=== PATIENT | male | born 1990 | race Caucasian/White ===

== ENCOUNTER 2017-05-26 23:52 | Observation (INO) | payer SELFPAY ==
[~2017-05-26] VITALS: Ht 177.8 cm; Wt 84.0 kg
[2017-05-27] VITALS (8 sets, daily range): BP systolic 124–135; BP diastolic 67–85; PULSE 60–66; RESP 18–22; TEMP 97.9–98.2; O2SAT 96–99
[2017-05-27] MEDS ORDERED: SODIUM CHLORIDE 0.9% FLUSH 10 ML FLUSH IVF PRN (00:15)
[2017-05-27] MEDS ORDERED: SODIUM CHLORID 0.9% 500 ML INJ 500 ML IV ONE (00:15)
[2017-05-27 00:59] LABS: AUTOMATED NEUTROPHIL # 6.8 TH/MM3 (1.8-7.7); BASOPHIL % 0.4 % (0.0-2.0); EOSINOPHIL # 0.2 TH/MM3 (0-0.4); EOSINOPHIL % 1.7 % (0.0-4.0); HEMATOCRIT 42.8 % (39.0-51.0); HEMO FLAGS DIFF FINAL; LYMPH % 26.8 % (9.0-44.0); LYMPHOCYTE # 2.9 TH/MM3 (1.0-4.8); MEAN CELL VOLUME 94.4 FL (80.0-100.0); MEAN CORPUSCULAR HEMOGLOBIN 31.7 PG (27.0-34.0); MEAN CORPUSCULAR HGB CONC 33.6 % (32.0-36.0); MONO % 8.3 % (0.0-8.0); NEUT % 62.8 % (16.0-70.0); PLATELET COUNT 268 TH/MM3 (150-450); RED BLOOD COUNT 4.54 MIL/MM3 (4.50-5.90); RED CELL DISTRIBUTION WIDTH 14.6 % (11.6-17.2); WHITE BLOOD COUNT 10.8 TH/MM3 (4.0-11.0)
--- NOTE | 2017-05-27 01:02 | PD ---
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 It is worse with a deep breath. It is present in the left side of his chest. He occasionally has SOB with it. The CP has been coming and going for a couple of years. He denies ever having stress testing in the past. He has a h/o of hypertension dx 4 years ago. He denies taking medication for it. He denies history of DM, hyperlipidemia. He smoke 1 ppd. On review of systems, he denies having any recent fevers, neck pain, abdominal pain, vomiting , urinary symptoms, or neurologic symptoms. He has diarrhea for the last week approximately 5 x per day. He has also had cough, congestion, and rhinorrhea. His cough is productive of clear sputum PFSH Past Medical History Narrative Medical The patient's past medical history is significant for hypertension, tobacco use Chest Pain: Yes Hypertension: Yes Past Surgical History Surgical History: No Previous Surgery Social History Alcohol Use: Yes (occasionally) Tobacco Use: Yes (1 PPD) Substance Use: Yes (thc) Allergies-Medications (Allergen,Severity, Reaction): Coded Allergies: nabumetone (Unverified Allergy, Severe, 05/27/17) PT STATES HIS FACE REDDENS AND SWELLS UP Reported Meds & Prescriptions Reported Meds & Active Scripts Active No Active Prescriptions or Reported Medications Review of Systems Except as stated in HPI: all other systems reviewed are Neg General / Constitutional: No: Fever Eyes: No: Visual changes HENT: Positive: Rhinorrhea, Congestion, No: Headaches Cardiovascular: Positive: Chest Pain or Discomfort Respiratory: Positive: Cough, Shortness of Breath Gastrointestinal: Positive: Diarrhea, Changes in Bowel Habits, No: Nausea, Vomiting, Abdominal Pain, Hematemesis, Hematochezia, Indigestion, Loss of Appetite Genitourinary: No: Dysuria Musculoskeletal: No: Pain Skin: No Rash Neurologic: No: Weakness Psychiatric: No: Depression Endocrine: No: Polydipsia Hematologic/Lymphatic: No: Easy Bruising Physical Exam Narrative General: The patient is a well-developed well-nourished male in no acute distress. Head and Neck exam: Head is normocephalic atraumatic. Eyes: EOMI, pupils are equal round and reactive to light. Nose: Midline septum with pink mucous membranes Mouth: Dentition unremarkable. Moist mucus membranes. Posterior oropharynx is not erythematous. No tonsillar hypertrophy. Uvula midline. Airway patent. Neck: No palpable lymphadenopathy. No nuchal rigidity. No thyromegaly. Cardiovascular: Sinus bradycardia in the 50s to 60 without murmurs, gallops, or rubs. No pulse deficit to the extremities on simultaneous auscultation and palpation of his radial artery. Lungs: Clear to auscultation bilaterally. No wheezes, rhonchi, or rales. Abdomen: Soft, without tenderness to palpation in all 4 quadrants of the abdomen. No guarding, rebound, or rigidity. Normal bowel sounds are audible. No tenderness on palpation of McBurney's point. Extremities: No clubbing, cyanosis, or edema. 2+ pulses in all 4 extremities. No calf tenderness on palpation. Back: No spinous process tenderness to palpation. No costovertebral angle tenderness to palpation. Neurologic Exam: Grossly nonfocal. Skin Exam: No rash noted. Intact skin that is warm and dry. Data Data Last Documented VS Vital Signs Date Time Temp Pulse Resp B/P (MAP) Pulse Ox O2 Delivery O2 Flow Rate FiO2 05/27/17 00:15 99 Nasal Cannula 2.00 05/27/17 00:15 18 05/27/17 00:13 98.2 64 Orders Orders Electrocardiogram (05/27/17 00:12) B-Type Natriuretic Peptide (05/27/17 00:12) Ckmb (Isoenzyme) Profile (05/27/17 00:12) Complete Blood Count With Diff (05/27/17 00:12) Comprehensive Metabolic Panel (05/27/17 00:12) D-Dimer (05/27/17 00:12) Magnesium (Mg) (05/27/17 00:12) Prothrombin Time / Inr (Pt) (05/27/17 00:12) Act Partial Throm Time (Ptt) (05/27/17 00:12) Troponin I (05/27/17 00:12) Lipase (05/27/17 00:12) Chest, Single Ap (05/27/17 00:12) Ecg Monitoring (05/27/17 00:12) Bilateral Bp Monitoring (05/27/17 00:12) Iv Access Insert/Monitor (05/27/17 00:12) Oximetry (05/27/17 00:12) Oxygen Administration (05/27/17 00:12) Sodium Chloride 0.9% Flush (Ns Flush) (05/27/17 00:15) Sodium Chlorid 0.9% 500 Ml Inj (Ns 500 M (05/27/17 00:15) CKMB (05/27/17 00:00) CKMB% (05/27/17 00:00) Ct Pulmonary Angiogram (05/27/17 01:53) Admit Order (Ed Use Only) (05/27/17 02:05) Labs Laboratory Tests Test 05/27/17 00:00 White Blood Count 10.8 TH/MM3 Red Blood Count 4.54 MIL/MM3 Hemoglobin 14.4 GM/DL Hematocrit 42.8 % Mean Corpuscular Volume 94.4 FL Mean Corpuscular Hemoglobin 31.7 PG Mean Corpuscular Hemoglobin Concent 33.6 % Red Cell Distribution Width 14.6 % Platelet Count 268 TH/MM3 Mean Platelet Volume 8.5 FL Neutrophils (%) (Auto) 62.8 % Lymphocytes (%) (Auto) 26.8 % Monocytes (%) (Auto) 8.3 % Eosinophils (%) (Auto) 1.7 % Basophils (%) (Auto) 0.4 % Neutrophils # (Auto) 6.8 TH/MM3 Lymphocytes # (Auto) 2.9 TH/MM3 Monocytes # (Auto) 0.9 TH/MM3 Eosinophils # (Auto) 0.2 TH/MM3 Basophils # (Auto) 0.0 TH/MM3 CBC Comment DIFF FINAL Differential Comment Prothrombin Time 10.8 SEC Prothromb Time International Ratio 1.0 RATIO Activated Partial Thromboplast Time 27.5 SEC D-Dimer Quantitative (PE/DVT) 0.51 MG/L FEU Blood Urea Nitrogen 8 MG/DL Creatinine 0.90 MG/DL Random Glucose 80 MG/DL Total Protein 6.4 GM/DL Albumin 2.9 GM/DL Calcium Level 8.3 MG/DL Magnesium Level 1.7 MG/DL Alkaline Phosphatase 90 U/L Aspartate Amino Transf (AST/SGOT) 18 U/L Alanine Aminotransferase (ALT/SGPT) 16 U/L Total Bilirubin 0.5 MG/DL Sodium Level 141 MEQ/L Potassium Level 3.4 MEQ/L Chloride Level 107 MEQ/L Carbon Dioxide Level 28.1 MEQ/L Anion Gap 6 MEQ/L Estimat Glomerular Filtration Rate 101 ML/MIN Total Creatine Kinase 110 U/L Creatine Kinase MB 1.5 NG/ML Troponin I LESS THAN 0.02 NG/ML B-Type Natriuretic Peptide 32 PG/ML Lipase 267 U/L [facility] Medical Decision Making Medical Screen Exam Complete: Yes Emergency Medical Condition: Yes Medical Record Reviewed: Yes Interpretation(s) Last Impressions CT Angiography 05/27/17 0153 Signed Impressions: Service Date/Time: Saturday, May 27, 2017 02:23 - CONCLUSION: Normal examination for a patient of this age. Brady Vazquez MD Chest X-Ray 05/27/17 0012 Signed Impressions: Service Date/Time: Saturday, May 27, 2017 00:46 - CONCLUSION: No acute disease. Brady Vazquez MD Differential Diagnosis Acute coronary syndrome, versus acid reflux, versus pulmonary embolism, versus anxiety disorder, versus new-onset congestive heart failure Narrative Course During the course of the patients emergency department visit, the patients history, examination, and differential diagnosis were reviewed with the patient. The patient had IV access obtained and blood work sent for analysis. The patient was placed on a lunchroom monitor with oximetry and blood pressure monitoring. An ECG was done on arrival. The patient's ECG reveals a sinus bradycardia rate of 56, no acute ST segment elevation or depression. The patient was initially provided normal saline a 500 mL bolus 1. The patients laboratory studies were reviewed and remarkable for a white count 10.8, hemoglobin 14.4, platelets 268 with 8.3 monocytes, CMP is remarkable for potassium of 3.4, calcium 8.3, CPK 110, MB 1.5, troponin I less than 0.02, lipase 267, PT 10.8, PTT 27.5, d-dimer elevated at 0.51, CTA to rule out PE was ordered. Radiology studies were reviewed and remarkable for a chest x-ray that showed no evidence of acute cardio pulmonary disease. CTA shows no evidence of pulmonary embolism. The patients results were discussed with the patient, including the plan of care. I explained that further testing and/ or monitoring is indicated based on the patients history, examination, and/ or laboratory findings. Therefore, I recommended admission for additional evaluation. The patient expressed understanding and was agreeable with this plan. The patient was admitted to the hospital in stable condition and sent to a bed under the care of the chest pain center. Diagnosis Primary Impression: Chest pain, rule out acute myocardial infarction Admitting Information Admitting Physician Requests: Observation Scripts No Active Prescriptions or Reported Meds Zayda Em MD May 27, 2017 01:02
[2017-05-27 01:08] LABS: ANION GAP 6 MEQ/L (5-15); AST (GOT) 18 U/L (15-37); BICARBONATE 28.1 MEQ/L (21.0-32.0); BLOOD UREA NITROGEN 8 MG/DL (7-18); CHLORIDE 107 MEQ/L (98-107); MAGNESIUM 1.7 MG/DL (1.5-2.5); POTASSIUM 3.4 MEQ/L (3.5-5.1); SODIUM (NA) 141 MEQ/L (136-145)
[2017-05-27 01:13] LABS: ALKALINE PHOSPHATASE 90 U/L (45-117); ALT (GPT) 16 U/L (12-78); CREATINE KINASE 110 U/L (39-308); GLOMERULAR FILTRATION RATE 101 ML/MIN (>89); TOTAL BILIRUBIN ADULT 0.5 MG/DL (0.2-1.0)
--- NOTE | 2017-05-27 01:19 | RADRPT ---
EXAM DATE/TIME: 05/27/2017 00:46 [facility] COMPARISON: No previous studies available for comparison. INDICATIONS : Short of breath. Chest pain. MEDICAL HISTORY : None. SURGICAL HISTORY : None. ENCOUNTER: Initial ACUITY: 1 day PAIN SCORE: 7/10 LOCATION: Bilateral chest FINDINGS: A single view of the chest demonstrates the lungs to be symmetrically aerated without evidence of mas s, infiltrate or effusion. The cardiomediastinal contours are unremarkable. Osseous structures are intact. CONCLUSION: No acute disease. Brady Vazquez MD on May 27, 2017 at 1:17 Board Certified Radiologist. This report was verified electronically.
[2017-05-27 01:25] LABS: CKMB 1.5 NG/ML (0.5-3.6)
[2017-05-27 01:32] LABS: APTT (PATIENT) 27.5 SEC (24.3-30.1); PROTHROMBIN TIME - PATIENT 10.8 SEC (9.8-11.6)
[2017-05-27] MEDS ORDERED: IOHEXOL 350 MG/ML 10 ML VIAL (for RAD DIAG) IVCONTRAST ONE (02:07)
--- NOTE | 2017-05-27 03:06 | RADRPT ---
EXAM DATE/TIME: 05/27/2017 02:23 [facility] COMPARISON: No previous studies available for comparison. INDICATIONS : Left side chest pain. IV CONTRAST: 70 cc Omnipaque 350 (iohexol) IV RADIATION DOSE: 9.94 CTDIvol (mGy) MEDICAL HISTORY : Hypertension. SURGICAL HISTORY : None. ENCOUNTER: Initial ACUITY: 1 day PAIN SCALE: 6/10 LOCATION: Left upper chest TECHNIQUE: Volumetric scanning of the chest was performed using a pulmonary embolism protocol MIP images were re constructed. Using automated exposure control and adjustment of the mA and/or kV according to patien t size, radiation dose was kept as low as reasonably achievable to obtain optimal diagnostic quality images. DICOM format image data is available electronically for review and comparison. Follow-up recommendations for detected pulmonary nodules are based at a minimum on nodule size and pa tient risk factors according to Fleischner Society Guidelines. FINDINGS: PULMONARY ARTERIES: No filling defects are seen in the pulmonary arteries through the segmental level. LUNGS: There is no consolidation or pneumothorax . No concerning pulmonary nodule is visualized. PLEURAE: There is no pleural thickening or pleural effusion. MEDIASTINUM: There is good visualization of the great vessels of the middle mediastinum. No evidence of mediastin al or hilar adenopathy/mass. MUSCULOSKELETAL: Within normal limits for patient age. MISCELLANEOUS: The visualized upper abdominal organs demonstrate no acute abnormality. CONCLUSION: Normal examination for a patient of this age. Brady Vazquez MD on May 27, 2017 at 3:03 Board Certified Radiologist. This report was verified electronically.
[2017-05-27] MEDS ORDERED: SODIUM CHLOR 0.9% 1000 ML INJ 1,000 ML IV SCH (03:28)
[2017-05-27] MEDS ORDERED: SODIUM CHLORIDE 0.9% FLUSH 10 ML FLUSH IV FLUSH PRN (03:30)
[2017-05-27] MEDS ORDERED: ACETAMINOPHEN 500 MG CPLT PO PRN (03:30)
[2017-05-27 04:36] LABS: CREATINE KINASE 89 U/L (39-308)
[2017-05-27] MEDS ORDERED: ASPIRIN 81 MG CHEW TAB CHEW ONE (07:00)
[2017-05-27] MEDS ORDERED: SODIUM CHLORIDE 0.9% FLUSH 10 ML FLUSH IV FLUSH SCH (09:00)
--- NOTE | 2017-05-27 09:44 | HHI.HP ---
HPI Primary Care Physician No Primary Care Physician Chief Complaint Chest pain History of Present Illness This is a 27-year-old male that presents to ED via ambulance with a complaint of chest discomfort. He states he's been having intermittent chest discomfort for couple years. He was found nothing in particular bring on the discomforts. Occasional shortness of breath with her. He states that it occurred yesterday while walking from [place] to [place]. No nausea or diaphoresis. Patient states he walked here to get work for [employer]. Cannot recall having a stress test. States he was told about 4 years ago that he had hypertension but has never medication. Patient smokes about a pack cigarettes daily. States his mother suddenly of a myocardial infarction age 57. Review of Systems General: Patient denies fevers, chills recent, and recent travel HEENT: Patient denies headache, sore throat, difficulty swallowing. Cardiovascular: Has the chest discomfort as mentioned above. Denies sensation of heart beating rapidly or irregularly. No syncope. Denies diaphoresis. Respiratory: Occasionally short of breath. Denies inspirational chest discomfort. Denies coughing wheezing or hemoptysis. GI: Patient denies nausea, vomiting, diarrhea, abdominal pain, bloody stools. Musculoskeletal: Patient denies joint pain or edema. Denies calf pain or edema. Neurovascular: Patient denies numbness, tingling, weakness in extremities. Denies headache. Endocrine: Denies polyuria and polydipsia. Hematologic: Denies easy bruising. Skin: Denies rash or itching. Past Family Social History Allergies: Coded Allergies: nabumetone (Unverified Allergy, Severe, 05/27/17) PT STATES HIS FACE REDDENS AND SWELLS UP Past Medical History Tobacco abuse. States he was told he had hypertension for years ago but was never prescribed any medication. He has been normotensive in the chest pain center. Denies hyperlipidemia, diabetes, and CAD. Past Surgical History Denies. Reported Medications Reported Meds & Active Scripts Active No Active Prescriptions or Reported Medications Active Ordered Medications Current Medications Medications (Trade) Dose Ordered Sig/Daysi Route Start Time Stop Time Status Last Admin (NS Flush) 2 ml UNSCH PRN IVF 05/27/17 00:15 Sodium Chloride 1,000 ml @ 100 mls/hr Q10H IV 05/27/17 03:28 05/27/17 03:32 (NS Flush) 2 ml UNSCH PRN IV FLUSH 05/27/17 03:30 (NS Flush) 2 ml BID IV FLUSH 05/27/17 09:00 (Tylenol) 500 mg Q4H PRN PO 05/27/17 03:30 Family History States his mother suddenly at age 57 of a myocardial infarction. Social History Patient smokes about one pack of cigarettes daily. States he smokes marijuana and asked how much he states "as much as I can." Drinks alcohol a couple times a week. Physical Exam Vital Signs Vital Signs Date Time Temp Pulse Resp B/P (MAP) Pulse Ox O2 Delivery O2 Flow Rate FiO2 05/27/17 07:37 98 Nasal Cannula 21 05/27/17 07:23 98.0 60 18 133/81 (98) 98 05/27/17 06:57 62 05/27/17 05:56 63 05/27/17 05:31 97.9 66 18 124/67 (86) 96 05/27/17 03:53 05/27/17 00:15 99 Nasal Cannula 2.00 05/27/17 00:15 18 99 Nasal Cannula 2.00 05/27/17 00:13 98.2 64 20 135/85 (102) 99 Room Air 05/27/17 00:08 98.2 64 22 135/85 (102) 99 Physical Exam GENERAL: This is a well-nourished, well-developed patient, in no apparent distress. Patient speaks in clear complete sentences. Patient is pleasant. HEENT: Head is atraumatic and normocephalic. Neck is supple without lymphadenopathy and trachea is midline. No JVD or carotid bruits. CARDIOVASCULAR: Regular rate and rhythm without murmurs, gallops, or rubs. RESPIRATORY: Clear to auscultation. Breath sounds equal bilaterally. No wheezes , rales, or rhonchi. Chest wall is nontender. No use of accessory muscles. GASTROINTESTINAL: Abdomen is nontender, nondistended. Abdomen soft. No obvious pulsatile mass or bruit. No CVA tenderness. Strong femoral pulses bilaterally. Normal bowel sounds in all quadrants. MUSCULOSKELETAL: Patient is moving upper and lower extremities freely. No calf tenderness or edema, no Homans sign. Strong pulses in upper and lower extremities. NEUROLOGICAL: Patient is alert and oriented. Cranial nerves 2-12 are grossly intact. No focal deficits and speech is clear. SKIN: No rash and turgor is normal. Laboratory Laboratory Tests Test 05/27/17 00:00 05/27/17 03:54 05/27/17 06:40 White Blood Count 10.8 Red Blood Count 4.54 Hemoglobin 14.4 Hematocrit 42.8 Mean Corpuscular Volume 94.4 Mean Corpuscular Hemoglobin 31.7 Mean Corpuscular Hemoglobin Concent 33.6 Red Cell Distribution Width 14.6 Platelet Count 268 Mean Platelet Volume 8.5 Neutrophils (%) (Auto) 62.8 Lymphocytes (%) (Auto) 26.8 Monocytes (%) (Auto) 8.3 Eosinophils (%) (Auto) 1.7 Basophils (%) (Auto) 0.4 Neutrophils # (Auto) 6.8 Lymphocytes # (Auto) 2.9 Monocytes # (Auto) 0.9 Eosinophils # (Auto) 0.2 Basophils # (Auto) 0.0 CBC Comment DIFF FINAL Differential Comment Prothrombin Time 10.8 Prothromb Time International Ratio 1.0 Activated Partial Thromboplast Time 27.5 D-Dimer Quantitative (PE/DVT) 0.51 Blood Urea Nitrogen 8 Creatinine 0.90 Random Glucose 80 Total Protein 6.4 Albumin 2.9 Calcium Level 8.3 Magnesium Level 1.7 Alkaline Phosphatase 90 Aspartate Amino Transf (AST/SGOT) 18 Alanine Aminotransferase (ALT/SGPT) 16 Total Bilirubin 0.5 Sodium Level 141 Potassium Level 3.4 Chloride Level 107 Carbon Dioxide Level 28.1 Anion Gap 6 Estimat Glomerular Filtration Rate 101 Total Creatine Kinase 110 89 52 Creatine Kinase MB 1.5 Troponin I LESS THAN 0.02 LESS THAN 0.02 0.02 B-Type Natriuretic Peptide 32 Lipase 267 Result Diagram: 05/27/17 0000 05/27/17 0000 Imaging Last [address] Angiography 05/27/17 0153 Signed Impressions: Service Date/Time: Saturday, May 27, 2017 02:23 - CONCLUSION: Normal examination for a patient of this age. Brady Vazquez MD Chest X-Ray 05/27/17 0012 Signed Impressions: Service Date/Time: Saturday, May 27, 2017 00:46 - CONCLUSION: No acute disease. Brady Vazquez MD Course EKGs are sinus rhythm without significant ST segment depressions or elevations. Caprini VTE Risk Assessment Caprini VTE Risk Assessment: No/Low Risk (score <= 1) Caprini Risk Assessment Model Point Value = 1 Point Value = 2 Point Value = 3 Point Value = 5 Age 41-60 Minor surgery BMI > 25 kg/m2 Swollen legs Varicose veins or History of unexplained or recurrent spontaneous Oral contraceptives or hormone replacement Sepsis (< 1 month) Serious lung disease, including pneumonia (< 1 month) Abnormal pulmonary function Acute myocardial infarction Congestive heart failure (< 1 month) History of inflammatory bowel disease Medical patient at bed rest Age 61-74 Arthroscopic surgery Major open surgery (> 45 min) Laparoscopic surgery (> 45 min) Malignancy Confined to bed (> 72 hours) Immobilizing plaster cast Central venous access Age >= 75 History of VTE Family history of VTE Factor V Leiden Prothrombin [id number] Lupus anticoagulant Anticardiolipin antibodies Elevated serum homocysteine Heparin-induced thrombocytopenia Other congenital or acquired thrombophilia Stroke (< 1 month) Elective arthroplasty Hip, pelvis, or leg fracture Acute spinal cord injury (< 1 month) Prophylaxis Regimen Total Risk Factor Score Risk Level Prophylaxis Regimen 0-1 Low Early ambulation 2 Moderate Order ONE of the following: *Sequential Compression Device (SCD) *Heparin 5000 units SQ BID 3-4 Higher Order ONE of the following medications: *Heparin 5000 units SQ TID *Enoxaparin/Lovenox 40 mg SQ daily (WT < 150 kg, CrCl > 30 mL/min) *Enoxaparin/Lovenox 30 mg SQ daily (WT < 150 kg, CrCl > 10-29 mL/min) *Enoxaparin/Lovenox 30 mg SQ BID (WT < 150 kg, CrCl > 30 mL/min) AND/OR *Sequential Compression Device (SCD) 5 or more Highest Order ONE of the following medications: *Heparin 5000 units SQ TID (Preferred with Epidurals) *Enoxaparin/Lovenox 40 mg SQ daily (WT < 150 kg, CrCl > 30 mL/min) *Enoxaparin/Lovenox 30 mg SQ daily (WT < 150 kg, CrCl > 10-29 mL/min) *Enoxaparin/Lovenox 30 mg SQ BID (WT < 150 kg, CrCl > 30 mL/min) AND *Sequential Compression Device (SCD) Assessment and Plan Assessment and Plan * Atypical chest pain: Patient has had serial cardiac enzymes and EKGs for ruling out purposes. He has been seen by Dr. Hussein cardiology in chest pain center. He will undergo a Derrick protocol ETT and be discharged a stress test was nonischemic. Up with PCP. * Tobacco abuse: Patient has been counseled on the importance of smoking cessation. * Marijuana abuse: Patient is a stop smoking marijuana. Patient is stable this time. He is agreeable to this plan. Fili Maza May 27, 2017 09:44
--- NOTE | 2017-05-27 09:46 | HHI.DCPOC ---
Discharge Care Plan Diagnosis: (1) Chest pain, atypical (2) Tobacco abuse (3) Marijuana abuse Goals to Promote Your Health * To prevent worsening of your condition and complications * To maintain your health at the optimal level Directions to Meet Your Goals Take your medications as prescribed Follow your dietary instruction Follow activity as directed Keep your appointments as scheduled Take your immunizations and boosters as scheduled If your symptoms worsen call your PCP, if no PCP go to Urgent Care Center or Emergency Room Smoking is Dangerous to Your Health. Avoid second hand smoke Call the 24-hour hour crisis hotline for domestic abuse at Fili Maza May 27, 2017 09:46
--- NOTE | 2017-05-27 16:41 | TR ---
Date Performed: 05/27/2017 Time Performed: 09:08:46 DOCTOR: Irasema Hussein DRUG LIST: CLINICAL HISTORY: CP R/O ACS REASON FOR TEST: REASON FOR ENDING: OBSERVATION: CONCLUSION: ARTUR PROTOCOL. NO CP OR SOB. PATIENT STEPPED OFF THE TREADMILL COMPLAINING OF BEING DIZZY.Maximum MI=786 % Max HR Achieved=70.0% Maximum DY=628/80 Total Exercise Time=9:48 COMMENTS:
--- NOTE | 2017-05-27 16:41 | EKG ---
Date Performed: 05/27/2017 Time Performed: 03:47:01 PTAGE: 27 years EKG: Sinus rhythm NORMAL ECG Since PREVIOUS TRACING , no significant change noted PREVIOUS TRACIN05/27/2017 00.05 DOCTOR: Irasema Hussein Interpretating Date/Time 05/27/2017 16:39:51
--- NOTE | 2017-05-27 16:42 | EKG ---
Date Performed: 05/27/2017 Time Performed: 00:05:05 PTAGE: 27 years EKG: SINUS BRADYCARDIA BORDERLINE ECG NO PREVIOUS TRACING DOCTOR: Irasema Hussein Interpretating Date/Time 05/27/2017 16:40:55
== END 2017-05-27 10:14 | disposition home or self-care (01) ==
LOC: NEPC 23:52 → NEDA 05-27 02:06 → NEPFCDU 05-27 04:03
PROVIDERS: ADMIT Internal Medicine Cardiovascular Disease; ATTEND Internal Medicine Cardiovascular Disease
DX: R07.89 Other chest pain (principal); F17.210 Nicotine dependence, cigarettes, uncomplicated; F12.10 Cannabis abuse, uncomplicated; R06.02 Shortness of breath; I10 Essential (primary) hypertension; R19.7 Diarrhea, unspecified
CPT/HCPCS: 71010; 71275; 80053; 82550; 82552; 83690; 83735; 83880; 84484; 85025; 85379; 85610; 85730; 93005; 93017; 96360; 96361; 99285; G0378; J7030; J7040; Q9967

== ENCOUNTER 2017-12-02 17:31 | Emergency (ER) | payer SELFPAY ==
[~2017-12-02] VITALS: Ht 177.8 cm; Wt 84.1 kg
[2017-12-02 17:50] VITALS: BP 155/79; PULSE 80; RESP 18; TEMP 98.5; O2SAT 97
[2017-12-02 19:38] VITALS: BP 131/76; PULSE 75; RESP 17; O2SAT 99
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
[2017-12-02] MEDS ORDERED: IBUPROFEN 400 MG TAB PO ONE (20:15)
[2017-12-02] MEDS ORDERED: CLIN300C5 PO (20:33)
[2017-12-02] MEDS ORDERED: BACT800T5 PO (20:34)
[2017-12-02 20:49] LABS: AUTOMATED NEUTROPHIL # 2.3 TH/MM3 (1.8-7.7); BASOPHIL # 0.1 TH/MM3 (0-0.2); EOSINOPHIL # 0.3 TH/MM3 (0-0.4); EOSINOPHIL % 5.7 % (0.0-4.0); HEMATOCRIT 42.9 % (39.0-51.0); HEMOGLOBIN 14.3 GM/DL (13.0-17.0); LYMPH % 35.4 % (9.0-44.0); MEAN CELL VOLUME 92.4 FL (80.0-100.0); MEAN CORPUSCULAR HEMOGLOBIN 30.9 PG (27.0-34.0); MEAN CORPUSCULAR HGB CONC 33.4 % (32.0-36.0); MEAN PLATELET VOLUME 7.5 FL (7.0-11.0); MONO % 15.8 % (0.0-8.0); MONOCYTE # 0.9 TH/MM3 (0-0.9); NEUT % 42.1 % (16.0-70.0); PLATELET COUNT 485 TH/MM3 (150-450); RED BLOOD COUNT 4.64 MIL/MM3 (4.50-5.90); RED CELL DISTRIBUTION WIDTH 13.7 % (11.6-17.2); WHITE BLOOD COUNT 5.6 TH/MM3 (4.0-11.0)
[2017-12-02 20:54] LABS: BILIRUBIN, URINE NEG (NEG); BLOOD, URINE NEG (NEG); GLUCOSE,URINE NEG (NEG); KETONE, URINE NEG (NEG); NITRITE,URINE NEG (NEG); URINE COLOR YELLOW (YELLW/STRAW); URINE LEUKOCYTE ESTERASE NEG (NEG)
[2017-12-02 21:32] LABS: ALBUMIN 3.1 GM/DL (3.4-5.0); AST (GOT) 22 U/L (15-37); BICARBONATE 24.6 MEQ/L (21.0-32.0); BLOOD UREA NITROGEN 15 MG/DL (7-18); CALCIUM 9.1 MG/DL (8.5-10.1); CHLORIDE 103 MEQ/L (98-107); CREATININE 1.02 MG/DL (0.60-1.30); GLOMERULAR FILTRATION RATE 88 ML/MIN (>89); GLUCOSE,RANDOM 94 MG/DL (74-106); SODIUM (NA) 137 MEQ/L (136-145)
[2017-12-02 21:34] LABS: ALKALINE PHOSPHATASE 69 U/L (45-117); ALT (GPT) 21 U/L (12-78); TOTAL BILIRUBIN ADULT 0.2 MG/DL (0.2-1.0)
[2017-12-02 23:36] VITALS: BP 121/55; PULSE 72; RESP 16; TEMP 98; O2SAT 100
[2017-12-03 05:28] VITALS: BP 116/64; PULSE 64; RESP 18; TEMP 97.9; O2SAT 99
[2017-12-03 12:36] VITALS: BP 132/72; PULSE 80; RESP 18; O2SAT 96
[2017-12-03] MEDS ORDERED: TH CTAB3 PO (13:37)
[2017-12-03] MEDS ORDERED: SULFAMETHOXAZOLE-TRIMETHOPRIM DS 800-160 MG TAB PO SCH (14:00)
[2017-12-03] MEDS ORDERED: CLINDAMYCIN 150 MG CAP PO SCH (14:00)
--- NOTE | 2017-12-03 15:10 | PD ---
History of Present Illness Chief Complaint: Adjustment disorder Time Seen by Provider: 14:40 Travel History International Travel<30 Days: No Contact w/Intl Traveler<30days: No Known affected area: No Legal Status Legal Status: Voluntary History of Present Illness: This is a 27-year-old, single, male who presents to the emergency department voluntarily reporting thoughts of suicide. He originally presented for an injured hand but upon discharge with statement that he wanted to . He has not been seen at this facility previous for mental health issues. Reviewed electronic medical records, labs, discuss case with staff. His toxicology screen is positive for benzodiazepines and marijuana. Patient was assessed in his room in [facility]. Is sleeping quietly in the dark upon my entry to the room, he awoke with verbal stimulus. He is alert and oriented 4. His speech is clear, logical, and organized. There is no indication of internal stimulation. His appearance is disheveled, dirty, and he is malodorous. He does report "wanting to " but does not relate a plan. He reports diagnoses of depression, schizophrenia, and PTSD. He states that he has been treated inpatient on multiple occasions at facilities in [place]. He reports that he is homeless and out of work due to a hand injury. He states that he "was living with my boss but when he found out I cannot work for couple of weeks he kicked me out". He claims to have attempted to take his life previously by "taking a handful of pills and cutting myself". He states the last attempt was approximately 2 years ago. He claims that there is a history of familial mental health illness. He reports that his family wants nothing to do with him. He states that he has been living in [place]. He claims "I travel ". 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 He denies having homicidal ideation, auditory or visual hallucinations. I can elicit no delusional material. PFSH Past Medical History Bipolar Disorder: Yes Anxiety: Yes Depression: Yes Heart Rhythm Problems: No Cardiac Catheterization: No Cardiovascular Problems: No High Cholesterol: No Chest Pain: Yes Congestive Heart Failure: No Diabetes: No Diminished Hearing: No Heparin Induced Thrombocytopen: No Hypertension: Yes Psychiatric: Yes (PTSD) Schizophrenia: Yes Tetanus Vaccination: < 5 Years Influenza Vaccination: No Past Surgical History Coronary Artery Bypass Graft: No Other Surgery: Yes (R hand surgery 11/27/17) Psychiatric History Psychiatric History Patient reports to this provider that he has a history of depression, schizophrenia, and PTSD. He reports multiple inpatient admissions with the last one being in [place]. He claims to have multiple previous suicide attempts with the most recent being approximately 2 years ago. Hx Psychiatric Treatment: PER PATIENT PTSD, DEPRESSION, AND BI- POLAR History of Inpatient Treatment: No Guns or firearms in home: No Social History He reports smoking marijuana, drinking approximately a 12 pack per week, and smoking half pack per day of tobacco. Hx Alcohol Use: Yes (occasionally) Hx Tobacco Use: Yes (1 PPD) Hx Substance Use: Yes (marijuana) Substance Use Type: Marijuana Family Psychiatric History Patient reports that his mother, sister, and brother have all been diagnosed with mental illness. His mother is at this time. States that his brother is in half-way, and his sister "does not want into anything to do with me ". He denies any knowledge of familial suicide attempts. Allergies-Medications (Allergen,Severity, Reaction): Coded Allergies: tripumetone (Unverified Allergy, Severe, 05/27/17) PT STATES HIS FACE REDDENS AND SWELLS UP Reported Meds & Prescriptions Reported Meds & Active Scripts Active Reported Complete Multi 50+ Tablet (Multivit-Min/FA/Lycopen/Lutein) 500 Mcg-300 Mcg-250 Mcg Tablet PO DIRECTED Bactrim DS (Sulfamethoxazole-Trimethoprim) 800-160 Mg Tab 1 Tab PO BID Clindamycin (Clindamycin HCl) 300 Mg Cap 300 Mg PO TID Mental Status Examination Appearance: Dirty, Disheveled, Malodorous Consciousness: Alert Orientation: x4 Motor Activity: Normal gait Speech: Unremarkable Language: Adequate Fund of Knowledge: Adequate Attention and Concentration: Adequate Memory: Unremarkable Mood: Appropriate Affect: Appropriate Thought Process & Associations: Intact Thought Content: Appropriate Hallucination Type: None Delusion Type: None Suicidal Ideation: Yes (Claims he would like to ) Suicidal Plan: No Suicidal Intention: No Homicidal Ideation: No Homicidal Plan: No Homicidal Intention: No Insight: Fair Judgment: Impulsive [facility] Medical Decision Making Medical Record Reviewed: Yes Assessment/Plan This is a 27-year-old, single, male who presented initially to the emergency department with complaints of a previous hand injury. Upon discharge , patient claims that he "feels suicidal". He relates that he feels hopeless due to his hand injury, which resulted in a loss of job, which resulted in him being homeless. Upon examination patient is alert and oriented 4. His speech is clear, logical, and organized. There is no indication of internal stimulus. He endorses wanting to but does not relay a plan. He states that he has no homicidal ideation, visual or auditory hallucinations. I can elicit no delusional material at this time. The patient reports having diagnoses of "severe depression, PTSD, and schizophrenia". He reported to the screening nurse that he had bipolar disorder. He reports multiple inpatient stays but states that they have all occurred and other states such as [place]. He denies having any family in the area reports that his brother is in half-way, and his sister will not have anything to do with him. Consulted with Dr. Abreu. Due to the inability to obtain corroborating information, and out of an over abundance of caution, patient will be placed under the [place] act for suicidal ideation and staffed with the Gerry Marchbarton act list. Orders Orders Complete Blood Count With Diff (12/02/17 20:01) Comprehensive Metabolic Panel (12/02/17 20:01) Thyroid Stimulating Hormone (12/02/17 20:01) Urinalysis - C+S If Indicated (12/02/17 20:) Iv Access Insert/Monitor (12/02/17 20:01) Ecg Monitoring (12/02/17 20:01) Psych Screen (12/02/17 20:01) Drug Screen, Random Urine (12/02/17 20:01) Alcohol (Ethanol) (12/02/17 20:01) Wound Care (12/02/17 20:01) Ibuprofen (Motrin) (12/02/17 20:15) Diet Regular Basic (12/03/17 Breakfast) Diet Regular Basic (12/03/17 Lunch) Clindamycin (Cleocin) (12/03/17 14:00) Sulfamet-Trimeth Ds 800-160 Mg (Bactrim (12/03/17 14:00) Diet Regular Basic (12/03/17 Dinner) Results Vital Signs Date Time Temp Pulse Resp B/P (MAP) Pulse Ox O2 Delivery O2 Flow Rate FiO2 12/03/17 12:36 80 18 132/72 (92) 96 Room Air 12/03/17 05:28 97.9 64 18 116/64 (81) 99 Room Air 12/02/17 23:36 98.0 72 16 121/55 (77) 100 Room Air 12/02/17 19:38 75 17 131/76 (94) 99 Room Air 12/02/17 17:50 98.5 80 18 155/79 (104) 97 Laboratory Tests Test 12/02/17 20:20 12/02/17 20:22 White Blood Count 5.6 Red Blood Count 4.64 Hemoglobin 14.3 Hematocrit 42.9 Mean Corpuscular Volume 92.4 Mean Corpuscular Hemoglobin 30.9 Mean Corpuscular Hemoglobin Concent 33.4 Red Cell Distribution Width 13.7 Platelet Count 485 Mean Platelet Volume 7.5 Neutrophils (%) (Auto) 42.1 Lymphocytes (%) (Auto) 35.4 Monocytes (%) (Auto) 15.8 Eosinophils (%) (Auto) 5.7 Basophils (%) (Auto) 1.0 Neutrophils # (Auto) 2.3 Lymphocytes # (Auto) 2.0 Monocytes # (Auto) 0.9 Eosinophils # (Auto) 0.3 Basophils # (Auto) 0.1 CBC Comment DIFF FINAL Differential Comment Blood Urea Nitrogen 15 Creatinine 1.02 Random Glucose 94 Total Protein 8.0 Albumin 3.1 Calcium Level 9.1 Alkaline Phosphatase 69 Aspartate Amino Transf (AST/SGOT) 22 Alanine Aminotransferase (ALT/SGPT) 21 Total Bilirubin 0.2 Sodium Level 137 Potassium Level 4.8 Chloride Level 103 Carbon Dioxide Level 24.6 Anion Gap 9 Estimat Glomerular Filtration Rate 88 Thyroid Stimulating Hormone 3rd Gen 1.480 Ethyl Alcohol Level LESS THAN 3 Urine Color YELLOW Urine Turbidity CLEAR Urine pH 7.0 Urine Specific [place] 1.022 Urine Protein NEG Urine Glucose (UA) NEG Urine Ketones NEG Urine Occult Blood NEG Urine Nitrite NEG Urine Bilirubin NEG Urine Urobilinogen LESS THAN 2.0 Urine Leukocyte Esterase NEG Urine RBC LESS THAN 1 Urine WBC 1 Microscopic Urinalysis Comment CULT NOT INDICATED Urine Opiates Screen NEG Urine Barbiturates Screen NEG Urine Amphetamines Screen NEG Urine Benzodiazepines Screen POS Urine Cocaine Screen NEG Urine Cannabinoids Screen POS Diagnosis Primary Impression: Adjustment disorder with depressed mood Referrals: Clifford Bowens III, MD call for appointment [facility] 2 days Lilly Parker Dec 03, 2017 15:10
[2017-12-03 16:56] VITALS: BP 121/63; PULSE 64; RESP 16; TEMP 98.5; O2SAT 99
== END 2017-12-02 19:00 ==
LOC: NEPC 17:31 → NEPJ 19:00
DX: Z48.00 Encounter for change or removal of nonsurgical wound dressing (principal); S69.80XD Other specified injuries of unspecified wrist, hand and finger(s), subsequent encounter; F43.21 Adjustment disorder with depressed mood; R45.851 Suicidal ideations; I10 Essential (primary) hypertension; Z59.0 Homelessness; Z88.2 Allergy status to sulfonamides; Z72.0 Tobacco use; F12.90 Cannabis use, unspecified, uncomplicated; Z91.5 Personal history of self-harm
CPT/HCPCS: 80053; 80307; 81001; 84443; 85025; 99283